=== PATIENT | male | born 1970 | race Two or more races ===

== ENCOUNTER 2024-11-04 17:41 | Emergency (ER) | payer MEDICAID, OTHER ==
[~2024-11-04] VITALS: Ht 180.3 cm; Wt 95.3 kg
[2024-11-04] MEDS: levETIRAcetam 1000 mg/100ml 100 ML IV ONE (17:45)
--- NOTE | 2024-11-04 18:03 | ED.PDOC ---
HPI (NEURO) HPI Comments HPI: 54 year old male presents to the ED via EMS with a chief complaint of seizure onset today (11/04/24). Per EMS, patient has no history of seizure, experienced a seizure witnessed by family, tried to assist patient to ground when he was falling, he hit his head. In route to ED, patient experienced a tonic-clonic seizure lasted about 1 minute, 5 mg Versed IM was given, IV was established RT arm,. Upon EMS arrival, patient BP was 190 systolic, upon ED arrival BP was 168/110, oral trauma was visualized. Upon assessment, patient was immediately sent to CT scan. No other symptoms or modifying factors present at this time. Initial Vitals BP: 168/110 HR: RR: O2: Temp: Past Medical History: HTN, possible CVA with no deficits Past Surgical History: Denies Social History: Denies ETOH, smoking, and drug use. Medications: unknown Allergies: NKDA HPI: Poor Historian. REVIEW OF SYSTEMS: Limited given the patient altered mental status. History obtained from EMS CONSTITUTIONAL: Denies acute: fever, diaphoresis, chills, generalized weakness. HEAD: Denies acute: headache, photophobia Eyes: Denies acute: Double vision, vision loss, eye pain, eye discharge. EARS: Denies acute: tinnitus, hearing loss, ear discharge, ear pain, THROAT: Denies acute: sore throat, swelling, difficulty swallowing , pain with swallowin g, change in voice. NECK: Denies acute: neck pain, neck swelling, stiff neck. HEART: Denies acute : chest pain, palpitations, LUNGS: Denies acute: SOB, wheezing, cough, hemoptysis ABDOMEN: Denies acute: abdominal pain, Nausea, Vomiting, diarrhea, melena , hematemesis, hematochezia SKIN: Denies acute: rash, redness, lesions, itchiness. EXTREMITIES: Denies acute: calf pain, numbness, tingling, weakness, denies pain in extremity. Denies acute: Low back pain. Neuro: Denies acute: focal neurological deficit, motor or sensory focal neurological deficit, dizziness, loss of bowel or bladder function, cauda equina like symptoms. : Denies acute: dysuria, hematuria, flank pain, increase in urinary frequency. PSYCH: Denies acute: hallucination, suicidal ideation, homicidal ideation. PHYSICAL EXAM: General: -----moderate---acute distress, awake and alert. Head: normocephalic, noted right facial maxillary bruise Neck: supple, trachea is midline, no swelling. Throat: History of oral trauma after the seizure. Noted dried blood on his mouth but no active bleeding. Eyes:, no erythema, no purulent discharge, no proptosis, no icterus. Heart: regular rate, regular rhythm, no significant murmur appreciated. Lungs: no apparent respiratory distress, No wheezing, no rhonchi, no crackles. No stridors Clear to auscultation bilaterally. Abdomen: non tender to palpation, non distended, soft, no guarding, no rebound, + bowel sounds. Neuro: Upon arrival patient just received Versed in route. Patient is protecting his airway. Unresponsive. Shortly after patient was reassessed and he is able to blink and make eye contact and track with his eyes. Skin: no petechia, no purpura, no cyanosis, non-pale, not jaundice. Lower extremities: --no - Pitting edema no deformity, no focal swelling, no calf TTP. Makes eye contact. moves all four extremities. Face: no apparent facial droop. ED COURSE: DISCLAIMER: This medical document was created using an electronic medical record system with voice recognition software and computerized dictation system. Although this document has been carefully reviewed, there might still be some phonetic and typographical errors. Occasional wrong-word or "sound-alike" substitutions may have occurred due to the inherent limitations of voice recognition software. These areas are purely typographical due to imperfections of the software programs and do not reflect any compromise in the patient's medical care. Please read the chart carefully and recognize, using context, where these substitutions have occurred. Time Seen by MD: 17:44 Reviewed Notes: Medications, Allergies Information Source: Emergency Med Personnel, Significant Other Mode of Arrival: EMS Severity: Moderate Timing: Hours Duration: Since onset Prehospital treatment: Other (Versed IM) Seizure Quality: Tonic-clonic Seizure Location: Generalized Onset: At rest Circumstances: Spontaneous Before: Normal During: Trauma: Tongue History of: CVA, Hypertension Modifying factors: Nothing Past Medical History PAST MEDICAL HISTORY: CVA, HTN Surgical History: Denies all surgeries Family History Family History: Reviewed,noncontributory to illness, No family hx of Cancer, No family hx of DM, No family hx of Heart asael, No family hx of HTN, No family hx ofKidney asael, No family hx of Liver asael, No family hx of Lung asael, No family hx of Stroke Social History Smoker: Non-Smoker Alcohol: Denies ETOH Use Drugs: Denies Drug Use Lives In: Home Was a procedure done? Was a procedure done?: No Differential Diagnosis (SZ) Seizure: Other (Enter seizure) Headache: Closed Head Injury, Epidural Hemorrhage, Intracerebral Hemorrhage, Subarachnoid Hemorrhage, Subdural Hemorrhage, Mass Lesion X-Ray, Labs, Meds, VS Vital Signs Date Time Temp Pulse Resp B/P (MAP) Pulse Ox O2 Delivery O2 Flow Rate FiO2 11/04/24 20:00 67 11/04/24 20:00 98.3 78 16 140/89 (106) 98 98.3 11/04/24 19:36 85 20 99 Nasal Cannula* 6 44 11/04/24 19:30 99.1 84 22 158/90 (112) 98 99.1 11/04/24 19:20 158/90 11/04/24 19:19 90 177/103 11/04/24 19:06 90 177/103 11/04/24 18:26 99.6 82 20 158/112 (127) 98 99.6 11/04/24 18:26 90 24 99 Non-Rebreather 15 N/A 11/04/24 18:19 97 158/112 11/04/24 18:12 99.7 99 22 172/114 98 99.7 Lab Test 11/04/24 19:13 11/04/24 18:01 11/04/24 17:45 Range/Units Troponin I High Sensitivity 25 21 </=54 ng/L White Blood Count 8.4 4.4-10.8 10^3/uL Red Blood Count 5.41 4.5-5.90 10^6/uL Hemoglobin 14.6 13.5-17.5 g/dL Hematocrit 44.0 41.0-53.0 % Mean Corpuscular Volume 81.4 80.0-100.0 fL Mean Corpuscular Hemoglobin 26.9 L 28.0-32.0 pg Mean Corpuscular Hemoglobin Concent 33.1 32.0-36.0 g/dL Red Cell Distribution Width 14.1 11.8-14.3 % Platelet Count 250 140-450 10^3/uL Mean Platelet Volume 8.9 6.9-10.8 fL Neutrophils (%) (Auto) 60.4 37.0-80.0 % Lymphocytes (%) (Auto) 29.1 10.0-50.0 % Monocytes (%) (Auto) 7.6 0.0-12.0 % Eosinophils (%) (Auto) 2.2 0.0-7.0 % Basophils (%) (Auto) 0.7 0.0-2.0 % Neutrophils # (Auto) 5.1 1.6-8.6 10 ^3/uL Lymphocytes # (Auto) 2.4 0.4-5.4 10 ^3/uL Monocytes # (Auto) 0.6 0-1.3 10 ^3/uL Eosinophils # (Auto) 0.2 0-0.8 10 ^3/uL Basophils # (Auto) 0.1 0-0.2 10 ^3/uL Nucleated Red Blood Cells 0.2 % Sodium Level 142 136-145 mmol/L Potassium Level 3.9 3.5-5.1 mmol/L Chloride Level 101 98-107 mmol/L Carbon Dioxide Level 19 L 20-31 mmol/L Anion Gap 22 H 5-15 Blood Urea Nitrogen 29 H 9-23 mg/dL Creatinine 2.71 H 0.700-1.30 mg/dL Glomerular Filtration Rate Calc 27 >90 mL/min BUN/Creatinine Ratio 10.7 10.0-20.0 Serum Glucose 111 H 74-106 mg/dL Lactic Acid Level 11.4 *H 0.4-2.0 mmol/L Calcium Level 9.3 8.7-10.4 mg/dL Total Bilirubin 0.5 0.2-1.0 mg/dL Aspartate Amino Transferase (AST) 27 13-40 U/L Alanine Aminotransferase (ALT) 30 7-40 U/L Alkaline Phosphatase 91 46-116 U/L Total Protein 7.4 5.7-8.2 g/dL Albumin 4.3 3.2-4.8 g/dL Plasma/Serum Blood Alcohol < 3.0 <10 mg/dL Urine Color Light-yellow Yellow Urine Clarity Clear Clear Urine pH 6.0 5.0-9.0 Urine Specific [place] 1.023 1.001-1.035 Urine Protein 3+ H Negative Urine Ketones 1+ H Negative Urine Blood 2+ H Negative /uL Urine Nitrite Negative Negative Urine Bilirubin Negative Negative Urine Urobilinogen Normal Negative mg/dL Urine Leukocyte Esterase Negative Negative /uL Urine RBC 4 0 - 3 /hpf Urine Microscopic WBC 11 H 0-3 /HPF Urine Squamous Epithelial Cells Few <5 /hpf Urine Bacteria None seen None Seen /hpf Urine Hyaline Casts Few 0 - 2 /lpf Urine Glucose Normal Normal mg/dL Urine Opiates Screen Neg NEGATIVE Urine Fentanyl Screen Neg NEGATIVE Urine Barbiturates Screen Neg NEGATIVE Urine Phencyclidine Screen Neg NEGATIVE Urine Amphetamines Screen Neg NEGATIVE Urine Benzodiazepines Screen Pos NEGATIVE Urine Cocaine Screen Neg NEGATIVE Urine Cannabinoids Screen Neg NEGATIVE [place] [address] Ph: [phone] DIAGNOSTIC IMAGING Diagnostic Imaging Report : [id number] Signed PATIENT: KUMAR DEUTSCH ACCT: [id number] UNIT: [id number] : 1970 LOC: ER ROOM / BED: / AGE / SEX: 54 / M ADM STATUS: REG ER SERVICE 44 ORDERING PHYSICIAN: LAUREN SANTIAGO DO PROCEDURE(s): CXRP - CHEST PORTABLE REASON: seizure AMS, fall ORDER NUMBER(s): [id number], ACCESSION NUMBER(s): [id number] CHEST RADIOGRAPH Indication: seizure AMS, fall Technique: Single frontal view of the chest was obtained Comparison: None FINDINGS: Lines and Tubes: None Lungs: No focal consolidation. Mild interstitial prominence. Obscuration of the left hemidiaphragm. No pneumothorax. Cardiomediastinal contours: [id number] cardiomegaly. Bones: No acute osseous abnormality. IMPRESSION: Cardiomegaly with pulmonary vascular congestion. Possible small left-sided pleural effusion. ATED BY: PRISCA COLBY DO DICTATED DATE/TIME: 11/04/241824 SIGNED BY: PRISCA COLBY DO SIGNED DATE/TIME: 11/04/241824 CC: [place] [id number] Ph: [phone] DIAGNOSTIC IMAGING Diagnostic Imaging Report : [id number] Signed PATIENT: KUMAR DEUTSCH ACCT: [id number] UNIT: [id number] : 1970 LOC: ER ROOM / BED: / AGE / SEX: 54 / M ADM STATUS: REG ER SERVICE [id number] ORDERING PHYSICIAN: LAUREN SANTIAGO DO PROCEDURE(s): HWOCT - HEAD WITHOUT CONTRAST REASON: seizure AMS, fall ORDER NUMBER(s): [id number], ACCESSION NUMBER(s): [id number] CT HEAD WITHOUT CONTRAST Indication: seizure AMS, fall EXAM DATE: 11/04/2024 05:36 PM COMPARISON: None TECHNIQUE: CT of the head without intravenous contrast. RADIATION DOSE: CTDIvol: 53.51 mGy, DLP: 53.51 mGy*cm FINDINGS: Left frontal intraparenchymal hemorrhage measuring 3.6 x 1.9 x 2.8 cm. Mild surrounding edema. 9 mm region of hemorrhage within the left ambient cistern region / medial left temporal lobe region Ventricles are midline and normal in size. Cisterns patent. Mild periventricular and subcortical white matter chronic microvascular ischemic changes. Old left wren radiata infarct. 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 Orbits and retrobulbar spaces are unremarkable. Mastoids well pneumatized. Paranasal sinuses well pneumatized. IMPRESSION: Left frontal intraparenchymal hematoma measuring 3.6 x 2.8 cm. 9 mm region of subarachnoid hemorrhage within the left ambient cisterns versus intraparenchymal hemorrhage within medial left temporal lobe. Mild chronic microvascular ischemic changes. Recommend MRI brain with and without contrast to further evaluate and exclude underlying evidence for mass resulting in the hemorrhage. Findings discussed with LAUREN SANTIAGO at 11/04/2024 06:49 PM, and acknowledged receipt and understanding of the findings. .. ATED BY: LEXI COLBY MD DICTATED DATE/TIME: 11/04/241852 SIGNED BY: LEXI COLBY MD SIGNED DATE/TIME: 11/04/241852 CC: [place] [address] Ph: [phone] DIAGNOSTIC IMAGING Diagnostic Imaging Report : [id number] Signed PATIENT: KUMAR DEUTSCH ACCT: [id number] UNIT: [id number] : 1970 LOC: ER ROOM / BED: / AGE / SEX: 54 / M ADM STATUS: REG ER SERVICE [id number] ORDERING PHYSICIAN: LAUREN SANTIAGO DO PROCEDURE(s): CS2 - CERVICAL WITHOUT CONTRAST REASON: seizure AMS, fall ORDER NUMBER(s): [id number], ACCESSION NUMBER(s): [id number] Indication: seizure AMS, fall Technique: CT axial images of the cervical spine are obtained without contrast. Coronal and sagittal reformats were obtained. Radiation Dose Information: CTDI volume is 19.44 mGy. Dose-length product is 473.93 mGy*cm Comparison: None FINDINGS: The cervical vertebral body heights are maintained. Straightening of normal cer vical spine curvature. There is moderate to advanced disc space narrowing. No prevertebral edema. Facet articulations demonstrate moderate facet hypertrophic changes . The atlantooccipital, atlantoaxial articulations are intact. There is moderate to advanced multilevel neural foraminal stenosis. Old distal left clavicular fracture deformity. IMPRESSION: Moderate to advanced cervical degenerative disc disease. ATED BY: LEXI COLBY MD DICTATED DATE/TIME: 11/04/241842 SIGNED BY: LEXI COLBY MD SIGNED DATE/TIME: 11/04/241842 CC: Time of 1ST Reevaluation: 18:14 Reevaluation 1ST: Unchanged Time of 2ND Reevaluation: 19:09 (The case was discussed with the higher level of care [facility] team (HPI, physical exam, labs and diagnostic tests that were available at the time of disposition, ED course, treatment plan) on the phone. They agreed to accept the patient to their service . No further recommendations. Accepting physician Dr. Travis. Patient is protecting his airway. Patient is moving all extremities. We placed mittens on him and we will likely place him on restraints to protect him as well.Cris gutierrezlfriend is at bedside. She says he is not taking any of his blood pressure medications but he is supposed to. He is only taking Tylenol at home. Denies any use of blood thinners.) Reevaluation 2ND: Improved Time of 3RD Reevaluation: 20:20 (Patient reassessed again. Patient opens eyes when I call his name. Patient makes eye contact. Patient is protecting his airway. Vital signs are stable. The patient is on a nicardipine drip. I discussed it also with the [facility] air nurse's and offered intubation however we all agreed that the patient has seems to be protecting his airway well and does not seem to need airway protection at this time. ) Patient Education/Counseling: Other Family Education/Counseling: Diagnosis, Treatment Comments MDM: patient presented with the above HPI.--patient was evaluated immediately. Altered mental status/seizure----workup was initiated. patient was found with the above mentioned diagnosis. Patient was taken to the CT scan immediately upon evaluation which showed intracranial bleed. Patient was placed in the bed on a cardiac rn with a non-rebreather mask 15 L. Leigh catheter was placed. Medications initiated of Keppra Decadron. Patient was protecting his airway with normal pulse ox. I ordered a C-collar immediately. Patient head of the bed raised to 45 Leigh catheter was placed by nursing staff. the following medications were ordered: please refer to order lists of meds and tests obtained by myself Dr. Santiago. Patient ED course and VS have been stabilized. Patient has been reassessed in the ED numerous times and his vital signs remained stable. Pertinent incidental findings were discussed with the family. /family voices understanding and is agreeable with plan. Patient was given labetalol initially IV bolus to help with his blood pressure hypertensive emergency. Patient then was started on nicardipine drip. Systolic blood pressure goal is below 140. Lactic acid was elevated consistent with two episodes of witnessed seizures. Patient was given some gentle hydration fluid bolus. Escalation of care considered: Consideration of escalation to observation or admission Patient was transferred to higher level of care by flight for further evaluation and treatment of their presentation. Specifically neurosurgical intervention. Patient is becoming agitated and moving all four extremities and pulling on his IV. Patient was given some Ativan to help him calm down which was effective. Patient's GCS score improved. He is able to blink and open his eyes sound and make eye contact. Patient is able to spontaneously move all four extremities with purposeful movement. All the reports of any imaging studies that were ordered by myself were reviewed by myself. Departure 1 Departure Time of Disposition: 18:52 Impression: Primary Impression: Intracranial hemorrhage Additional Impressions: Hypertensive emergency Chronic kidney disease Pulmonary vascular congestion Elevated lactic acid level Disposition: 02 SHORT TERM HOSPITAL Condition: Critical Discharged With: Self Critical Care Note Critical Care Time?: Yes (>90min-critical care time only) I personally scribed for LAUREN SANTIAGO DO ([email or web address]) on 11/04/24 at 18:03. Electronically submitted by Carmen Raya ([email or web address]). LAUREN SANTIAGO DO Nov 04, 2024 18:03
[2024-11-04] MEDS: LABETALOL HCL 20 MG/4 ML VL IV ONE ×2 (18:19→19:06)
[2024-11-04 18:24] LABS: Hematocrit 44.0 % (41.0-53.0); Hemoglobin 14.6 g/dL (13.5-17.5); Mean Corpuscular Hemoglobin 26.9 pg (28.0-32.0); Mean Corpuscular Volume 81.4 fL (80.0-100.0); Nucleated Red Blood Cells % 0.2 %
[2024-11-04 18:26] VITALS: PULSE 90; RESP 24; O2SAT 99
--- NOTE | 2024-11-04 18:28 | DVH ---
CHEST RADIOGRAPH Indication: seizure AMS, fall Technique: Single frontal view of the chest was obtained Comparison: None FINDINGS: Lines and Tubes: None Lungs: No focal consolidation. Mild interstitial prominence. Obscuration of the left hemidiaphragm. No pneumothorax. Cardiomediastinal contours: [id number] cardiomegaly. Bones: No acute osseous abnormality. IMPRESSION: Cardiomegaly with pulmonary vascular congestion. Possible small left-sided pleural effusion.
[2024-11-04 18:39] LABS: Alanine Aminotransferase 30 U/L (7-40); Albumin 4.3 g/dL (3.2-4.8); Alkaline Phosphatase 91 U/L (46-116); Anion Gap 22 (5-15); BUN/Creatinine Ratio 10.7 (10.0-20.0); Calcium 9.3 mg/dL (8.7-10.4); Chloride 101 mmol/L (98-107); Potassium 3.9 mmol/L (3.5-5.1); Sodium 142 mmol/L (136-145); Total Protein 7.4 g/dL (5.7-8.2)
[2024-11-04 18:42] LABS: Blood Urea Nitrogen 29 mg/dL (9-23); Carbon Dioxide 19 mmol/L (20-31); Glucose 111 mg/dL (74-106)
--- NOTE | 2024-11-04 18:43 | DVH ---
Indication: seizure AMS, fall Technique: CT axial images of the cervical spine are obtained without contrast. Coronal and sagittal reformats were obtained. Radiation Dose Information: CTDI volume is 19.44 mGy. Dose-length product is 473.93 mGy*cm Comparison: None FINDINGS: The cervical vertebral body heights are maintained. Straightening of normal cervical spine curvature . There is moderate to advanced disc space narrowing. No prevertebral edema. Facet articulations demo nstrate moderate facet hypertrophic changes . The atlantooccipital, atlantoaxial articulations are in tact. There is moderate to advanced multilevel neural foraminal stenosis. Old distal left clavicular fracture deformity. IMPRESSION: Moderate to advanced cervical degenerative disc disease.
[2024-11-04 18:48] LABS: Lactic Acid w/Reflex 11.4 mmol/L (0.4-2.0)
--- NOTE | 2024-11-04 18:53 | DVH ---
CT HEAD WITHOUT CONTRAST Indication: seizure AMS, fall EXAM DATE: 11/04/2024 05:36 PM COMPARISON: None TECHNIQUE: CT of the head without intravenous contrast. RADIATION DOSE: CTDIvol: 53.51 mGy, DLP: 53.51 mGy*cm FINDINGS: Left frontal intraparenchymal hemorrhage measuring 3.6 x 1.9 x 2.8 cm. Mild surrounding edema. 9 mm region of hemorrhage within the left ambient cistern region / medial left temporal lobe region Ventricles are midline and normal in size. Cisterns patent. Mild periventricular and subcortical whi te matter chronic microvascular ischemic changes. Old left wren radiata infarct. Old left pontine i nfarct. Orbits and retrobulbar spaces are unremarkable. Mastoids well pneumatized. Paranasal sinuses well pn eumatized. IMPRESSION: Left frontal intraparenchymal hematoma measuring 3.6 x 2.8 cm. 9 mm region of subarachnoid hemorrhage within the left ambient cisterns versus intraparenchymal hemor rhage within medial left temporal lobe. Mild chronic microvascular ischemic changes. Recommend MRI brain with and without contrast to further evaluate and exclude underlying evidence for mass resulting in the hemorrhage. Findings discussed with LAUREN SANTIAGO at 11/04/2024 06:49 PM, and acknowledged receipt and understandin g of the findings. ..
[2024-11-04] MEDS: LORazepam 2MG/ML-1ML VIAL IV ONE (18:56)
[2024-11-04 19:04] LABS: Bilirubin, Total 0.5 mg/dL (0.2-1.0)
[2024-11-04] MEDS: SODIUM CHLORIDE 0.9% 1,000 ML IV ONE (19:07)
[2024-11-04 19:36] VITALS: PULSE 85; RESP 20; O2SAT 99
[2024-11-04 20:00] VITALS: BP 140/89; PULSE 67; RESP 16; TEMP 98.3; O2SAT 98
[2024-11-04 20:04] LABS: Urine Protein, UAD 3+ (Negative)
[2024-11-04 20:13] LABS: Amphetamine Screen, Urine Neg (NEGATIVE); Barbiturate Scree,Urine Neg (NEGATIVE); Benzodiazephine Screen, Urine Pos (NEGATIVE); Cannabinoid Screen, Urine Neg (NEGATIVE); Cocaine Screen, Urine Neg (NEGATIVE); Opiate Scree,Urine Neg (NEGATIVE); Phencyclidine Screen, Urine Neg (NEGATIVE)
== END 2024-11-04 20:05 | disposition short-term general hospital (02) ==
LOC: EDBD 17:41 → ER 17:44
DX: I62.1 Nontraumatic extradural hemorrhage (principal); I16.1 Hypertensive emergency; I13.10 Hypertensive heart and chronic kidney disease without heart failure, with stage 1 through stage 4 chronic kidney disease, or unspecified chronic kidney disease; N18.9 Chronic kidney disease, unspecified; J81.1 Chronic pulmonary edema; Z86.73 Personal history of transient ischemic attack (TIA), and cerebral infarction without residual deficits
CPT/HCPCS: 36415; 70450; 71045; 72125; 80053; 80307; 80320; 81001; 82947; 83605; 84484; 85025; 96361; 96374; 96375; 96376; 99291; 99292; J1100; J1953; J2060; J2404; J7030